=== PATIENT | male | born 1970 | race Caucasian/White ===

== ENCOUNTER → 2017-08-16 | Outpatient (CLI) | payer BC ==
--- NOTE | 2017-08-16 12:48 | CT ---
EXAMINATION TYPE: CT abdomen pelvis wo con DATE OF EXAM: 08/16/2017 COMPARISON: 07/27/2013 HISTORY: Left sided abdominal pain CT DLP: 1581 mGycm Automated exposure control for dose reduction was used. TECHNIQUE: Helical acquisition of images was performed from the lung bases through the pelvis. FINDINGS: LUNG BASES: Heart size is stable and there is a tiny pericardial effusion. LIVER/GB: No significant abnormality is appreciated. PANCREAS: No significant abnormality is seen. SPLEEN: No significant abnormality is seen. ADRENALS: No significant abnormality is seen. KIDNEYS: Right kidney: There are 2 less than 5 mm calculi with no hydronephrosis. There is a 2 mm distal right ureteral calculus. Left kidney: There are 2 less than 5 mm calculi with no hydronephrosis. FREE AIR: No free air is visualized ADENOPATHY: None visualized URINARY BLADDER: No significant abnormality is seen. OSSEOUS STRUCTURES: No significant abnormality is seen. BOWEL: Mild wall thickening of the sigmoid colon without evidence of inflammatory changes. Mild skinner ges of diverticulosis.. OTHER: Aorta of normal caliber with mild atherosclerotic changes. No evidence of aneurysm. IMPRESSION: 1. Nonobstructing bilateral nephrolithiasis with a 2 mm distal right ureteral calculus. No hydronephr osis. 2. There is mild wall thickening of the sigmoid colon with no surrounding inflammatory changes. Corre late for mild colitis otherwise consider direct visualization to assess the mucosa.
== END | disposition home or self-care (01) ==
LOC: RADCTMAIN 11:43
PROVIDERS: ATTEND Family Medicine
DX: N20.2 Calculus of kidney with calculus of ureter (principal); R93.8 Abnormal findings on diagnostic imaging of other specified body structures
CPT/HCPCS: 74176

== ENCOUNTER 2018-12-02 16:30 | Emergency (ER) | payer BC ==
[2018-12-02 17:11] VITALS: BP 115/79; PULSE 80; RESP 18; TEMP 98.3
[2018-12-02] MEDS ORDERED: PROPARACAINE 0.5% OPHTH DROPS 15 ML BTL BOTH EYES STA (17:23)
[2018-12-02] MEDS ORDERED: TOBRAMYCIN 0.3% OPHTH DROPS 5 ML BTL RIGHT EYE STA (17:48)
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
== END 2018-12-02 18:27 | disposition home or self-care (01) ==
LOC: EC 16:30
DX: T26.62XA Corrosion of cornea and conjunctival sac, left eye, initial encounter (principal); Z87.891 Personal history of nicotine dependence; Z88.5 Allergy status to narcotic agent
CPT/HCPCS: 99283

== ENCOUNTER 2020-10-11 15:26 | Emergency (ER) | payer BC ==
[2020-10-11 15:34] VITALS: RESP 16; TEMP 98.3
[2020-10-11] MEDS ORDERED: SODIUM CHLORIDE 0.9% 1,000 ML IV STA (15:43)
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
[2020-10-11 16:05] LABS: Basophils % (A) 0 %; Eosinophils # (A) 0.2 k/uL (0-0.7); Eosinophils % (A) 2 %; HGB 14.4 gm/dL (13.0-17.5); Lymphocytes # (A) 1.8 k/uL (1.0-4.8); Lymphocytes % (A) 20 %; MCH 33.7 pg (25.0-35.0); MCHC 35.2 g/dL (31.0-37.0); MCV 95.7 fL (80.0-100.0); Mean Platelet Volume 9.1; Monocytes # (A) 0.3 k/uL (0-1.0); Monocytes % (A) 3 %; Neutrophils # (A) 6.5 k/uL (1.3-7.7); Neutrophils % (A) 73 %; Platelet Count 189 k/uL (150-450); RBC 4.28 m/uL (4.30-5.90); RDW 13.9 % (11.5-15.5); WBC 8.9 k/uL (3.8-10.6)
--- NOTE | 2020-10-11 16:19 | XR ---
EXAMINATION TYPE: XR chest 2V DATE OF EXAM: 10/11/2020 COMPARISON: 04/09/2010 INDICATION: Syncope TECHNIQUE: Single frontal view of the chest is obtained. FINDINGS: The heart size is normal. The pulmonary vasculature is normal. The lungs are clear. IMPRESSION: 1. No acute pulmonary process.
[2020-10-11 16:20] LABS: Albumin 3.6 g/dL (3.5-5.0); Calcium 9.4 mg/dL (8.4-10.2); Magnesium 1.8 mg/dL (1.6-2.3); Potassium 3.8 mmol/L (3.5-5.1); Total Bilirubin 0.4 mg/dL (0.2-1.3); Total Protein 6.2 g/dL (6.3-8.2)
[2020-10-11 16:50] LABS: D-Dimer 0.31 mg/L FEU (<0.60); INR 0.9 (<1.2); Prothrombin Time 9.7 sec (9.0-12.0)
[2020-10-11 16:52] LABS: Partial Thromboplastin Time 21.6 sec (22.0-30.0)
[2020-10-11 17:54] VITALS: PULSE 68
[2020-10-11 18:14] LABS: Appearance,Urine Clear (Clear); Bilirubin,Urine Negative (Negative); Blood,Urine Negative (Negative); Color,Urine Yellow; Glucose,Urine (UA) Negative (Negative); Hyaline Casts,Urine 9 /lpf (0-2); Ketones,Urine Negative (Negative); Leukocyte Esterase,Urine Small (Negative); Mucus,Urine Moderate /hpf; Nitrite,Urine Negative (Negative); Protein,Urine 1+ (Negative); RBC,Urine 1 /hpf (0-5); Specific Gravity,Urine 1.023 (1.001-1.035); Squamous Epithelial Cell,Urine 1 /hpf (0-4); Urobilinogen,Urine <2.0 mg/dL (<2.0); WBC,Urine 9 /hpf (0-5)
[2020-10-11 18:36] VITALS: BP 112/65
== END 2020-10-11 18:39 | disposition home or self-care (01) ==
LOC: EC 15:26
DX: E86.0 Dehydration (principal); R55 Syncope and collapse; F17.200 Nicotine dependence, unspecified, uncomplicated; F12.90 Cannabis use, unspecified, uncomplicated; Z87.442 Personal history of urinary calculi
CPT/HCPCS: 36415; 71046; 80053; 81001; 83735; 84484; 85025; 85379; 85610; 85730; 93005; 96360; 96361; 99284

== ENCOUNTER 2023-04-05 13:14 | Day surgery (SDC) | payer BC ==
[2023-04-02 10:08] VITALS: BMI 34.4
[~2023-04-05 13:14] MED LIST: LACTATED RINGERS 1,000 ML IV SCH; LIDOCAINE 1% (10MG/ML) FOR IV START INTRADERMA PRN
[2023-04-05 13:38] VITALS: TEMP 97
[2023-04-05] MEDS ORDERED: LIDOCAINE 1% INJ 10MG/ML (20 ML MDV) ONE (13:59)
[2023-04-05] MEDS ORDERED: PROPOFOL 10 MG/ML 20 ML VIAL IV ONE (13:59)
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
--- NOTE | 2023-04-05 14:10 | P.OP ---
Date of Procedure: 04/05/23 Preoperative Diagnosis: Screening colonoscopy Postoperative Diagnosis: Normal colon Procedure(s) Performed: Colonoscopy Anesthesia: MAC Surgeon: Doe Esparza Pathology: none sent Condition: stable Disposition: PACU Description of Procedure: PROCEDURE: The patient was placed on the endoscopy table in the lateral position. Digital rectal examination was performed which revealed no abnormalities. The prostate was symmetrical without nodules. Flexible colonoscope was then placed in the patient's anus and passed throughout the entire colon. The ileocecal valve was visualized. The cecum, ascending, transverse, descending and sigmoid colon were normal. The rectum was normal as well. There were no masses, polyps or diverticula noted in the entire colon. SUMMARY OF FINDINGS: Normal colonoscopy.
[2023-04-05 14:48] VITALS: BP 150/76; PULSE 74; RESP 16
== END 2023-04-05 14:40 | disposition home or self-care (01) ==
LOC: ORWHC2ENDO 13:14
PROVIDERS: ATTEND Surgery
DX: Z12.11 Encounter for screening for malignant neoplasm of colon (principal); K58.9 Irritable bowel syndrome, unspecified; Z87.891 Personal history of nicotine dependence; Z87.442 Personal history of urinary calculi; Z91.040 Latex allergy status; Z88.5 Allergy status to narcotic agent; Z79.899 Other long term (current) drug therapy
CPT/HCPCS: 45378; J2001; J2704